=== PATIENT | male | born 1990 | race Caucasian/White ===

== ENCOUNTER 2019-12-06 20:26 | Emergency (ER) | payer SELFPAY ==
[2019-12-06 20:30] VITALS: BP 126/75; PULSE 82; RESP 16; TEMP 37; O2SAT 98
--- NOTE | 2019-12-06 20:42 | ED.GENADUL_ITS ---
Discharge Plan Disposition Patient Disposition: HOME Condition: Stable Discharge Details Chief Complaint: Laceration Clinical Impression: Hand laceration Primary Care Provider: Nisha Shultz ED Provider: Jan Paulino Home Meds and New Rx's Prescriptions: Continued sertraline 100 MG tablet 100 mg PO DAILY RF: 0 Discharge Instructions Instructions: Laceration (ED) Additional Instructions: Sutures were offered but declined. Steri-Strips applied. Keep the area clean and dry, apply dry sterile dressing over the Steri-Strips daily. Steri-Strips will likely come off on their own in the next 7-10 days. Please watch for new or worsening symptoms and return to the ER for any concerns Medical Decision Making 29-year-old gentleman presents for right hand laceration. Tetanus up-to-date. Wound was thoroughly cleaned and irrigated. We discussed closure options. Based upon the location, being on the dominant hand, sutures were recommended and offered but declined. He reports that he would prefer Steri-Strips. Steri-Strips applied without difficulty. Dry sterile dressing applied. Patient has no additional questions or concerns and is comfortable discharge. Medical Records Medical records reviewed: Yes I reviewed the patient's medical records. HPI General Mode of arrival: ambulatory . Date/Time Provider Initiated Documentation: 12/06/19 20:42 . Limitations to Documentation: no limitations . Information obtained by: patient . HPI Narrative: 29-year-old gentleman who is right-hand dominant, no significant past medical history presents for evaluation of right hand laceration. 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 He reports the pain is moderate in nature. No foreign body or bleeding. No other injury. No numbness, tingling, weakness. Tetanus status is up-to-date. Related Data Home Medications Medication Instructions Recorded Confirmed sertraline 100 mg PO DAILY 08/16/16 12/06/19 Allergies Allergy/AdvReac Type Severity Reaction Status Date / Time mushroom Allergy Skin Rash Unverified 12/06/19 20:33 General Stated Complaint: Laceration CESAR: 4 Review of Systems Constitutional Constitutional: Denies weakness Musculoskeletal Musculoskeletal: Denies arthralgias, Denies numbness and Denies tingling Integumentary/Breasts Skin/Breast: Denies rash Neurologic Neurologic: Denies numbness, Denies tingling and Denies weakness PFSH Social History Smoking/Tobacco Use Status: Current every day Tobacco Type: cigarettes Alcohol Intake: current Alcohol Intake frequency: a few times a month Drug use: Daily Substance use type: marijuana Do you feel safe at home: Yes Do you feel safe in your relationship?: Yes Exam Const General: cooperative, healthy appearing, comfortable and no acute distress Orientation: alert and awake HENMT Head: normal to inspection, normocephalic and atraumatic Mouth: moist mucous membranes Eyes Conjunctivae: conjunctivae normal Neck Neck: normal visual inspection, trachea midline and supple Resp Effort & Inspection: normal respiratory effort and able to speak in complete sentences Cardio Rate: regular rate Rhythm: regular rhythm Skin General skin exam: no rashes or lesions noted Neuro General: patient alert, patient awake, moves all extremities and no focal motor deficits Sensory Exam: no sensory deficits noted Extrem Hand/finger images: 1. 1 cm superficial well approximated laceration. Neuro, vascular, tendon intact. No bleeding or foreign body. Psych Appearance: grossly normal Mental Status: mental status grossly normal Course Vital Signs Vital signs: Vital Signs Temperature 37 C 12/06/19 20:30 Pulse 82 12/06/19 20:30 Respiratory Rate 16 12/06/19 20:30 Blood Pressure 126/75 12/06/19 20:30 Pulse Oximetry 98 12/06/19 20:30 Temperature 37 C 12/06/19 20:30 Temperature Source Temporal Artery Scan 12/06/19 20:30 Pulse 82 12/06/19 20:30 Respiratory Rate 16 12/06/19 20:30 Respiratory Effort Non-Labored 12/06/19 20:34 Blood Pressure 126/75 12/06/19 20:30 Blood Pressure Position Sitting 12/06/19 20:30 Pulse Oximetry 98 12/06/19 20:30 Oxygen Delivery Method Room Air 12/06/19 20:30 Oxygen Flow Rate 0 12/06/19 20:30 Pain Level 5 12/06/19 20:30
== END 2019-12-06 20:50 | disposition home or self-care (01) ==
PROVIDERS: Emergency Provider Physician Assistant; PCP Nurse Practitioner Family
DX: S61.411A Laceration without foreign body of right hand, initial encounter (principal); W31.89XA Contact with other specified machinery, initial encounter
CPT/HCPCS: 99282; 99283

== ENCOUNTER 2019-12-14 00:24 | Emergency (ER) | payer SELFPAY ==
[2019-12-14] VITALS: BP 131/86; PULSE 110; RESP 22; TEMP 36.8; O2SAT 100
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
[2019-12-14 00:43] LABS: ALT 15 U/L (16-63); AST 19 U/L (15-37); Albumin 3.3 g/dL (3.4-5.0); Alkaline Phosphatase 55 U/L (46-116); Anion Gap 12.4 mmol/L (3-11); BUN 7 mg/dL (7-18); Bilirubin, Total 0.3 mg/dL (0.2-1.0); CO2 20.6 mmol/L (21.0-32.0); CREATININE 0.69 mg/dL (0.70-1.30); Calcium 6.7 mg/dL (8.5-10.1); Chloride 110 mmol/L (98-107); Creatine Kinase 233 U/L (39-308); ETHANOL BLOOD 75.4 mg/dL (<3); Glucose 80 mg/dL (74-106); Sodium 143 mmol/L (136-145); Total Protein 5.8 g/dL (6.4-8.2)
[2019-12-14 00:51] LABS: Abs Immature Grans 0.06 10^3/uL (0.0-0.06); Absolute Basophil Count 0.05 10^3/uL (0.0-0.2); Absolute Eosinophil Count 0.05 10^3/uL (0.0-0.7); Absolute Neutrophil Count 9.82 10^3/uL (1.2-6.7); Basophils % 0.4; Eosinophils % 0.4; HCT 40.4 % (40.0-50.0); HGB 13.3 g/dL (13.5-17.5); Immature Grans % 0.5; Lymphocytes % 11.6; MCHC 32.9 % (32.0-36.0); MCV 85.1 fL (80-95); MPV 10.2 fL (8.0-11.0); Monocytes % 8.3; Neutrophils % 78.8; Nucleated RBC 0 %; Platelet Count 269 10^3/uL (130-400); RBC 4.75 10^6/uL (4.36-5.78); RDW 13.1 % (11.8-14.1); RDW-SD 40.9 fL; WBC 12.46 10^3/uL (4.4-10.8)
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
[2019-12-14 00:52] LABS: Absolute Lymphocyte Count 1.45 10^3/uL (1.2-3.4); Absolute Monocyte Count 1.03 10^3/uL (0.1-0.8)
[2019-12-14 00:54] LABS: Potassium 2.7 mmol/L (3.5-5.1)
[2019-12-14] MEDS: Omnipaque 350 MG/ML 100 ML BTL IV (01:04)
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
[2019-12-14 01:06] LABS: INR 1.1 (0.9-1.1); PTT Activated 23.1 sec (21.0-31.4); Prothrombin Time 11.3 sec (9.3-11.0)
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
[2019-12-14] MEDS: Potassium Chloride 20 MEQ TABCR 40 MEQ PO (01:41)
[2019-12-14 01:52] VITALS: BP 136/88; PULSE 86; RESP 20; O2SAT 100
== END 2019-12-14 01:55 | disposition home or self-care (01) ==
LOC: ER 02:18
PROVIDERS: Emergency Provider Emergency Medicine; PCP Nurse Practitioner Family
DX: S09.90XA Unspecified injury of head, initial encounter (principal); S70.12XA Contusion of left thigh, initial encounter; S29.8XXA Other specified injuries of thorax, initial encounter; R10.12 Left upper quadrant pain; V48.5XXA Car driver injured in noncollision transport accident in traffic accident, initial encounter; F10.120 Alcohol abuse with intoxication, uncomplicated; Y90.3 Blood alcohol level of 60-79 mg/100 ml; E87.6 Hypokalemia
CPT/HCPCS: 36415; 74177; 80053; 80307; 82550; 99285; 70450; 71260; 72125; 73701; 80320; 81003; 85025; 85610; 85730; 99284; J3490

== ENCOUNTER 2020-02-29 17:33 | Emergency (ER) | payer SELFPAY ==
[2020-02-29 17:39] VITALS: BP 115/72; PULSE 75; TEMP 36.6; O2SAT 98
--- NOTE | 2020-02-29 17:48 | PDOC.CMSAFED ---
- If Service Date Differs Date of service: 02/29/20 Time of Service: 17:49 Care Management Safety Plan Chief complaint: Per report, Jose arrived at ED intoxicated and suicidal. He will be evaluated by mental health once he is no longer intoxicated, and he is medically cleared. He will be monitored by staff one on one for safety until further evaluation can be made. CM will continue to follow. In the interim; please note safety plan below to guide patient care while awaiting further assessment in the ED. SAFETY PLAN: 1. Will remain on suicide precautions and in paper clothes. 2. 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 3. May have paper cups, plates, finger foods as well as a cardboard spoon with which to eat meals. 4. Follow [facility] Management of the Admitted Behavioral Health Patient policy. 5. Comfort bath system only. 6. No personal belongings 7. No visitors. 8. Phone contact limited, at discretion of staff. 9. Due to VOLUNTARY status, if patient wishes to leave [facility], the [facility] outreach and education social worker must be contacted to re-evaluate patient prior to patient exiting the building. If deemed appropriate for inpatient psychiatric care, safety plan will be established with patient, and care team, to adhere to patient goals, identify restrictions based on behavioral status, address nutrition, and determine allowed personal belongings, tools for hygiene and personal care. As well plan will determine level of activity including ambulation, level of supervision, visitors, and determine privileges based on level of acuity, behaviors and level of engagement by patient.
[2020-02-29 18:10] LABS: Bilirubin Negative (Negative); Blood Negative (Negative); Clarity Clear (Clear); Glucose Negative (Negative); Ketones Negative (Negative); Leukocyte Esterase Negative (Negative); Nitrite Negative (Negative); Urobilinogen 0.2 EU/dL (Up TO 0.2); pH 6.5 (5-8)
[2020-02-29 18:19] LABS: Abs Immature Grans 0.03 10^3/uL (0.0-0.06); Absolute Basophil Count 0.07 10^3/uL (0.0-0.2); Absolute Eosinophil Count 0.06 10^3/uL (0.0-0.7); Absolute Lymphocyte Count 1.83 10^3/uL (1.2-3.4); Absolute Monocyte Count 0.94 10^3/uL (0.1-0.8); Absolute Neutrophil Count 7.32 10^3/uL (1.2-6.7); Basophils % 0.7; Eosinophils % 0.6; HCT 40.1 % (40.0-50.0); HGB 13.4 g/dL (13.5-17.5); Immature Grans % 0.3; Lymphocytes % 17.9; MCHC 33.4 % (32.0-36.0); MCV 83.7 fL (80-95); MPV 10.1 fL (8.0-11.0); Monocytes % 9.2; Neutrophils % 71.3; Nucleated RBC 0 %; Platelet Count 257 10^3/uL (130-400); RBC 4.79 10^6/uL (4.36-5.78); RDW 12.4 % (11.8-14.1); RDW-SD 38.2 fL; WBC 10.25 10^3/uL (4.4-10.8)
[2020-02-29 18:23] LABS: *AMPHETAMINES SCREEN URINE Negative (Negative); *BARBITURATES SCREEN URINE Negative (Negative); *BENZODIAZEPINES SCREEN URINE Negative (Negative); Cannabinoids THC POSITIVE (Negative); Cocaine Screen,Urine Negative (Negative); METHADONE URINE SCREEN Negative (Negative); OPIATES URINE SCREEN Negative (Negative)
[2020-02-29 18:28] LABS: Tricyclic Antidepressants Negative (Negative)
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
[2020-02-29 18:52] LABS: ALT 20 U/L (16-63); AST 29 U/L (15-37); Albumin 4.5 g/dL (3.4-5.0); Alkaline Phosphatase 76 U/L (46-116); Anion Gap 11.1 mmol/L (3-11); BUN 9 mg/dL (7-18); Bilirubin, Total 0.3 mg/dL (0.2-1.0); CO2 23.9 mmol/L (21.0-32.0); CREATININE 0.88 mg/dL (0.70-1.30); Chloride 105 mmol/L (98-107); ETHANOL BLOOD 81.9 mg/dL (<3); Glucose 77 mg/dL (74-106); Potassium 3.7 mmol/L (3.5-5.1); Sodium 140 mmol/L (136-145); TSH 1.91 uIU/mL (0.36-3.74); Total Protein 7.8 g/dL (6.4-8.2)
[2020-02-29 18:58] LABS: Acetaminophen < 2 ug/mL (10-30); Salicylate < 2.8 mg/dL (2.8-20.0)
== END 2020-02-29 20:20 | disposition home or self-care (01) ==
PROVIDERS: Emergency Provider Nurse Practitioner Acute Care; PCP Nurse Practitioner Family
DX: F10.129 Alcohol abuse with intoxication, unspecified (principal); Y90.4 Blood alcohol level of 80-99 mg/100 ml; R45.850 Homicidal ideations; R45.851 Suicidal ideations; Z72.89 Other problems related to lifestyle
CPT/HCPCS: 80053; 80307; 99285; 80320; 80329; 81003; 84443; 85025; 99284

== ENCOUNTER 2020-04-30 21:42 | Emergency (ER) | payer SELFPAY ==
[2020-04-30 21:53] VITALS: BP 116/72; PULSE 95; RESP 18; TEMP 37.2; O2SAT 99
--- NOTE | 2020-04-30 22:06 | ED.GENADUL_ITS ---
Discharge Plan Disposition Patient Disposition: HOME Condition: Good Discharge Details Clinical Impression: Forearm pain Primary Care Provider: Nisha Shultz ED Provider: Yohan Le [place] Meds and New Rx's Prescriptions: New ibuprofen 600 mg tablet 600 mg PO TID Qty: 15 RF: 0 Continued sertraline 100 mg tablet 100 mg PO HS RF: 0 Discharge Instructions Additional Instructions: X-rays are negative. It does not appear to be infection. Suspect more likely tendinitis type problem. Wear splint at all times except to shower. No use of right upper extremity until follow up with PCP. Call for recheck end of next week. Ibuprofen for next 5 days. Ice on/off over the weekend. Return if worsening pain/redness/swelling, fever, numbness, weakness of hand. Referrals: Nisha Shultz [Primary Care Provider] - Medical Decision Making This is not abscess or infection. Suspect more tendonitis type picture involving proximal tendons/muscle of forearm. No evidence of compartment syndrome. X-ray obtained and normal. Placed in wrist splint and started on NSAIDs. Rest and no use of RUE. Follow up with PCP next week. Return to ED if problems. HPI General Mode of arrival: ambulatory . Date/Time Provider Initiated Documentation: 04/30/20 22:06 . Limitations to Documentation: no limitations . Information obtained by: patient and RN notes reviewed . HPI Narrative: Patient presents to ED with right forearm pain. Patient denies injury. He is right hand dominant. 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 He denies illness, fever, chills. He states started to notice pain two days ago. Today worse and tonight seems swollen and a little red. Denies IVDA. Related Data Home Medications Medication Instructions Recorded Confirmed ibuprofen 600 mg PO TID #15 tab 04/30/20 sertraline 100 mg PO HS 04/30/20 04/30/20 Previous Rx's Medication Instructions Recorded ibuprofen 600 mg PO TID #15 tab 04/30/20 Allergies Allergy/AdvReac Type Severity Reaction Status Date / Time mushroom Allergy Mild Skin Rash Unverified 04/30/20 21:57 General Stated Complaint: Cellulitis CESAR: 4 Review of Systems Constitutional Constitutional: Denies chills, Denies fever(s) and Denies night sweats Musculoskeletal Musculoskeletal: Denies muscle weakness and Denies numbness Integumentary/Breasts Skin/Breast: Reports erythema, Denies sores and Denies wounds Neurologic Neurologic: Denies numbness [facility] Medical History Depression Social History Smoking/Tobacco Use Status: Current every day Tobacco Type: cigarettes Smoking risk assessment performed?: Yes Alcohol Intake: current Alcohol Intake frequency: a few times a month Drug use: Daily Substance use type: marijuana Do you feel safe at home: Yes Do you feel safe in your relationship?: Yes Exam Const General: cooperative, comfortable and no acute distress Orientation: alert and oriented x3 HENMT Head: normocephalic and atraumatic Neck Neck: trachea midline and supple Resp Effort & Inspection: normal respiratory effort Skin Other: Minimal erythema without warmth radial distal right forearm. Extrem Other: Swelling and tenderness without fluctuance right distal third of radius area. Decreased ROM in wrist due to pain in forearm. Wrist itself not painful and not swollen. Hand normal but flexion/extension of finger causes pain in forearm. Pronation/supination also cause pain but not as severe. Elbow normal. NVI with strength, sensation, pulse and cap refil. Course Vital Signs Vital signs: Vital Signs Temperature 99.0 F 04/30/20 21:53 Pulse 95 H 04/30/20 21:53 Respiratory Rate 18 04/30/20 21:53 Blood Pressure 116/72 04/30/20 21:53 Pulse Oximetry 99 04/30/20 21:53 Temperature 99.0 F 04/30/20 21:53 Temperature Source Skin 04/30/20 21:53 Pulse 95 H 04/30/20 21:53 Respiratory Rate 18 04/30/20 21:53 Respiratory Effort Non-Labored 04/30/20 21:57 Blood Pressure 116/72 04/30/20 21:53 Pulse Oximetry 99 04/30/20 21:53 Pain Level 8 04/30/20 21:53
--- NOTE | 2020-04-30 22:21 | DI.RAD_ITS ---
EXAM: XR FOREARM RT CLINICAL HISTORY: pain/swelling distal third; no trauma. TECHNIQUE: 2D digital imaging was performed. COMPARISON: CR LEFT FOREARM from 08/16/2016 FINDINGS: BONES: No acute fracture is present. No bony destructive lesion is seen. Visualized portion of elbow and wrist joints are unremarkable. SOFT TISSUE: Normal. IMPRESSION: Unremarkable radiographs of the right forearm. DATA REPOSITORY: RADIATION DOSE DELIVERED:
--- NOTE | 2020-04-30 22:26 | DI.VRAD_ITS ---
PROCEDURE INFORMATION: Exam: XR Right Forearm Exam date and time: 04/30/2020 10:22 PM Age: 29 years old Clinical indication: Lower or forearm; Right; Patient HX: Pain and swelling distal 1/3rd , no trauma TECHNIQUE: Imaging protocol: XR Right forearm. Views: 2 views. COMPARISON: No relevant prior studies available. FINDINGS: Bones/joints: Normal. No osseous erosion. No fracture or dislocation. Normal osseous mineralization. Soft tissues: Normal. No soft tissue gas or radiopaque foreign body. IMPRESSION: No acute abnormality. Dictated and Authenticated by: Francisco Oneill MD. Ordering:EL Almanzar MD
[2020-04-30] MEDS: Ibuprofen 600 MG TAB PO (22:42)
== END 2020-04-30 23:00 | disposition home or self-care (01) ==
PROVIDERS: Emergency Provider Emergency Medicine; PCP Nurse Practitioner Family
DX: M79.631 Pain in right forearm (principal)
CPT/HCPCS: 29125; 99283; 73090

== ENCOUNTER 2021-04-28 21:05 | Emergency (ER) | payer MEDICAID, SELFPAY ==
--- NOTE | 2021-04-28 21:06 | ED.GENADUL_ITS ---
Discharge Plan Disposition Patient Disposition: HOME Condition: Good Discharge Details Clinical Impression: Foot pain, left Primary Care Provider: Nisha Shultz ED Provider: Yohan [place] Meds and New Rx's Prescriptions: Continued sertraline 100 mg tablet 100 mg PO HS RF: 0 ibuprofen 600 mg tablet 600 mg PO TID Qty: 15 RF: 0 Discharge Instructions Additional Instructions: X-rays are normal. Suspect pain and discomfort related to the tendons and should improve over the weekend with rest, ice, ibuprofen. Follow-up with [facility] care in 1 to 2 weeks if it is not improving. Return to ED if fever, increasing pain, swelling, redness, or other concerns. Referrals: Nisha Shultz [Primary Care Provider] - Medical Decision Making Patient has not taken anything for pain. Given ibuprofen here. X-ray of the left foot obtained and per my review and preliminary radiology read negative for any acute changes. Suspect related to the tendons and should improve with ice, rest, nonsteroidals. Follow-up with primary care 1 to 2 weeks if not improving. Return to ED for increasing pain, swelling, redness, other concerns. HPI General Mode of arrival: ambulatory . Date/Time Provider Initiated Documentation: 04/28/21 21:06 . Limitations to Documentation: no limitations . Information obtained by: patient and RN notes reviewed . HPI Narrative: Patient presents to the ED with foot pain which started this evening. There was no injury or change in footwear. Pain is across the top of his foot and shoots up his maurice at times. Some pain in his arch. No swelling or redness. Toes felt numb/tingly earlier while walking. Otherwise feels well with no other complaints. Related Data Home Medications Medication Instructions Recorded Confirmed sertraline 100 mg PO HS 04/30/20 04/28/21 ibuprofen 600 mg PO TID #15 tab 04/28/21 Previous Rx's Medication Instructions Recorded ibuprofen 600 mg PO TID #15 tab 04/28/21 Allergies Allergy/AdvReac Type Severity Reaction Status Date / Time mushroom Allergy Mild Skin Rash Unverified 04/28/21 21:21 General CESAR: 4 Review of Systems Narrative: As documented in HPI otherwise negative as below. Const: no fever, chills, weakness Resp: no cough, SOB, pleuritic pain CV: no CP, diaphoresis, edema, syncope GI: no abdominal pain, nausea, vomiting, diarrhea Neuro: no headache, focal weakness, confusion PFSH All Active Problems (Updated 04/28/21 @ 22:27 by Yohan Le MD) Foot pain, left (Acute) Medical History Depression Surgical History S/P appendectomy Social History Smoking/Tobacco Use Status: Current every day Tobacco Type: cigarettes Smoking risk assessment performed?: Yes Alcohol Intake: current Alcohol Intake frequency: a few times a month Drug use: Daily Substance use type: marijuana Do you feel safe at home: Yes Do you feel safe in your relationship?: Yes Exam Narrative Exam Narrative: Const: WDWN male in NAD. HEENT: NC/AT. Normal facial exam. Eyes: Normal conjunctiva and sclera. Neck: Supple. Trachea midline. Lungs: Normal respiratory effort. Cor: RRR . Good DP/PT pulses. Neuro: A+O x 3. Normal speech, mentation, gait. Cranial nerves II - XII grossly intact. No gross motor or sensory deficit. Ext: No C/C/E. Left foot appears normal. Tender across the top of the mid foot. Mild tenderness in the arch. Pain with active ROM of toes but not passive. Skin: Warm and dry without rash/erythema.
--- NOTE | 2021-04-28 21:15 | DI.RAD_ITS ---
Exam(s) XR FOOT LT COMPLETE EXAM: XR FOOT LT COMPLETE CLINICAL HISTORY: pain and swelling to mid foot. TECHNIQUE: 2D digital imaging was performed. COMPARISON: No exams were available for comparison FINDINGS: There is no evidence of acute fracture or diastasis of the Lala aditya joint. Bone density is normal. No osseous lesions evident. On the lateral view cannot exclude the possibility of tarsal coalition (talocalcaneal). IMPRESSION: No acute findings evident. Possible talar coalition. DATA REPOSITORY: RADIATION DOSE DELIVERED:
[2021-04-28 21:19] VITALS: BP 127/57; PULSE 72; RESP 18; TEMP 36.8; O2SAT 95
--- NOTE | 2021-04-28 22:24 | DI.VRAD_ITS ---
PROCEDURE INFORMATION: Exam: XR Left Foot Exam date and time: 04/28/2021 9:28 PM Age: 30 years old Clinical indication: Other: Pain midfoot TECHNIQUE: Imaging protocol: XR Left foot. Views: 3 or more views. COMPARISON: CT LOWER EXTREMITY LT W 12/14/2019 12:19 AM FINDINGS: Bones/joints: Normal. Soft tissues: Normal. IMPRESSION: No acute findings. Dictated and Authenticated by: Romie Ferreira MD. Ordering:EL Almanzar MD
== END 2021-04-28 22:33 | disposition home or self-care (01) ==
PROVIDERS: Emergency Provider Emergency Medicine; PCP Nurse Practitioner Family
DX: M79.671 Pain in right foot (principal); R22.42 Localized swelling, mass and lump, left lower limb
CPT/HCPCS: 99283; 73630

== ENCOUNTER 2023-10-28 20:07 | Emergency (ER) | payer MEDICAID, SELFPAY ==
[2023-10-28 20:10] VITALS: BP 135/83; PULSE 83; TEMP 36.9; O2SAT 98
[2023-10-28 20:40] VITALS: BP 135/83; PULSE 83; TEMP 36.9; O2SAT 98
--- NOTE | 2023-10-28 21:49 | ED.GENADUL_ITS ---
Discharge Plan Disposition Patient Disposition: Home Discharge Details Clinical Impression: Acute foreign body of left ear Primary Care Provider: Nisah Shultz ED Provider: Erik Contreras Home Meds and New Rx's Prescriptions: No Action trazadone PO Rx Instructions: 50mg HS sertraline 100 mg tablet 150 mg PO HS Patient Comments: tejas ibuprofen 600 mg tablet 600 mg PO TID Qty: 15 0RF Discharge Instructions Instructions: Foreign Body in Ear Additional Instructions: Please use the provided eardrops and apply 10 drops into the affected ear once daily for the next 4 days. Return to the emergency department for any new or significant worsening of symptoms otherwise follow-up with your primary care provider as needed Referrals: Nisha Shultz [Primary Care Provider] - [facility] General Mode of arrival: ambulatory . Date/Time Provider Initiated Documentation: 10/28/23 20:15 . Limitations to Documentation: no limitations . Information obtained by: patient and RN notes reviewed . History of Present Illness 33 year old M presents to the emergency department with the chief complaint of Foreign object, bug, and left ear, described as moderate, Quality is described as sharp, Patient started experiencing this minute(s) (30) and it has been constant. No relieving factors improve symptom(s), No exacerbating factors reported . Patient notes no other symptoms.. Patient did receive the following treatments prior to arrival, none Related Data Home Medications Medication Instructions Recorded Confirmed ibuprofen 600 mg tablet 600 mg PO TID #15 tabs 04/28/21 12/01/21 sertraline 100 mg tablet 150 mg PO HS 12/01/21 12/01/21 trazadone PO 12/01/21 Previous Rx's Medication Instructions Recorded ibuprofen 600 mg tablet 600 mg PO TID #15 tabs 04/28/21 Allergies Allergy/AdvReac Type Severity Reaction Status Date / Time mushroom Allergy Mild Skin Rash Unverified 04/28/21 21:21 General Stated Complaint: EarProblem CESAR: 4 Review of Systems Constitutional Constitutional: Denies headache(s) ENT Ears, Nose, Mouth, and Throat: Reports as per HPI, Reports otalgia and Denies headache(s) Cardiovascular Cardiovascular: Denies dyspnea Respiratory Respiratory: Denies dyspnea Neurologic Neurologic: Denies headache(s) Exam Const General: cooperative, no acute distress and not ill appearing Orientation: alert, awake and oriented x3 HENMT Head: normal to inspection and normocephalic Ears: hearing grossly normal bilaterally, external ears normal and EAC abnormal cerumen impaction on the left and foreign body on the left Mouth: moist mucous membranes Resp Effort & Inspection: normal respiratory effort, able to speak in complete sentences and no respiratory distress Skin General skin exam: no rashes or lesions noted Neuro General: patient alert, patient awake, patient oriented x3, moves all extremities and no focal motor deficits Sensory Exam: no sensory deficits noted Course Vital Signs Vital signs: Vital Signs Temperature 36.9 C 10/28/23 20:10 Pulse 83 10/28/23 20:10 Blood Pressure 135/83 10/28/23 20:10 Pulse Oximetry 98 10/28/23 20:10 Temperature 36.9 C 10/28/23 20:40 Temperature Source Tympanic 10/28/23 20:10 Pulse 83 10/28/23 20:40 Respiratory Effort Normal 10/28/23 20:55 Blood Pressure 135/83 10/28/23 20:40 Blood Pressure Position Sitting 10/28/23 20:40 Pulse Oximetry 98 10/28/23 20:40 Oxygen Delivery Method Room Air 10/28/23 20:40 Pain Level 6 10/28/23 20:40 Procedures FB Removal Ear Location: ear canal (L) Foreign Body Suspected: insect TM intact pre-procedure: unable to visualize If Insect Suspected: ear canal instilled with Lidocaine Foreign Body Removed: yes Foreign Body Removal Technique: irrigation Tympanic Membrane Intact: Yes Patient Tolerated Procedure: well Complications: none Medical Decision Making Patient presenting to the emergency department for chief complaint of reported bug in left ear. Patient unsure how this occurred and denies all other symptoms. Nurse at triage stated that she saw the bug crawling around in the ear and enter further into the canal when she went to visualize bug. When I attempted to visualize ear was full of cerumen and initially unable to visualize. With inability to view TM did discuss with patient risk versus benefit of procedure which she gave verbal agreement to proceed. Lidocaine was immediately instilled into the ear and allowed to sit in there for 10 minutes. Ear was then suctioned out and enough cerumen was able to be removed to visualize a portion of the insect. Unfortunately alligator forceps were not available so did try further suctioning and other instruments along with irrigation. Finally was able to irrigate the bug into a place to grab it with some tweezers. Patient tolerated procedure well. Visualization of the ear canal did show some excoriation of the canal but TM was intact. Patient placed upon ofloxacin to cover for potential infection due to excoriation by bug otherwise patient can monitor symptoms at home and return for new or worsening of condition. After discussion of diagnosis and plan of care patient has no further needs, questions, or concerns and states clear understanding to return to the emergency department for any worsening symptoms. This documentation was generated using Spreadsave dictation system, please disregard any oddities of phrase or misspellings. Quality:SDOH Health Related Social Needs: No Data to Display PFSH All Active Problems (Updated 10/28/23 @ 22:37 by Erik Contreras NP) Acute foreign body of left ear (Acute) Medical History Depression Surgical History S/P appendectomy Social History Smoking/Tobacco Use Status: Current every day Tobacco Type: cigarettes Smoking risk assessment performed?: Yes Alcohol Intake: current Alcohol Intake frequency: a few times a month Drug use: Daily Substance use type: marijuana Do you feel safe at home: Yes Do you feel safe in your relationship?: Yes
[2023-10-28] MEDS: Ofloxacin 0.3% OTIC 5 ML BTL AD (22:05)
[2023-10-28 22:06] VITALS: BP 135/83; PULSE 83; RESP 16; TEMP 36.9; O2SAT 98
== END 2023-10-28 22:10 | disposition home or self-care (01) ==
PROVIDERS: Emergency Provider Nurse Practitioner Family; PCP Nurse Practitioner Family
DX: T16.2XXA Foreign body in left ear, initial encounter (principal); F17.210 Nicotine dependence, cigarettes, uncomplicated; W44.F4XA Insect entering into or through a natural orifice, initial encounter
CPT/HCPCS: 99283

== ENCOUNTER 2024-06-10 08:45 | Emergency (ER) | payer MEDICAID, SELFPAY ==
[2024-06-10 09:18] VITALS: BP 120/76; PULSE 71; RESP 20; TEMP 37.1; O2SAT 98
--- NOTE | 2024-06-10 09:23 | ED.GENADUL_ITS ---
Discharge Plan Disposition Patient Disposition: Home Condition: Stable Discharge Details Clinical Impression: Upper respiratory virus Primary Care Provider: Nisha Shultz ED Provider: Malia Lee Home Meds and New Rx's Prescriptions: No Action trazadone 50 mg PO HS Rx Instructions: 50mg HS lamotrigine 25 mg tablet 25 mg PO DAILY Patient Comments: TAKE ONE TABLET BY MOUTH EVERY DAY sertraline 100 mg tablet 150 mg PO HS Patient Comments: tejas ibuprofen 600 mg tablet 600 mg PO TID Qty: 15 0RF Discharge Instructions Instructions: Viral Upper Respiratory Infection, Adult (DC) Additional Instructions: You were seen in the emergency department today for evaluation of bodyaches, runny nose, which is most consistent with a viral upper respiratory infection. In our department you do full physical examination performed and had a negative viral swab. Please continue to maintain good hydration and nutrition and use Tylenol and ibuprofen for management of fever or pain. Please follow-up with your primary care provider in the next few days to discuss this visit and any symptoms that change, worsen, or persist. Thank you for allowing us to be part of your care. Stand Alone Forms: Work Release HPI General Mode of arrival: ambulatory . Date/Time Provider Initiated Documentation: 06/10/24 08:52 . Limitations to Documentation: no limitations . Information obtained by: patient and old records reviewed . HPI Narrative: HPI: This is a 33-year-old male patient without significant past medical history is presenting for evaluation of 2 days of general malaise, body aches, stuffy nose and cough. The patient reports that his was sick with influenza and he is worried that he is catching it. He has felt a subjective fever and hot sweats, has not measured a temperature at home. He has not tried any medications at home for management of the symptoms. Has not had vomiting and has been able to eat and drink normally, has stayed home from work for the last few days. Exam: Gen: Awake and alert, in no apparent distress HEENT: Non-icteric s, moist mucous membranes clera Neck: Supple Lungs: No apparent respiratory distress, normal respiratory effort. Lung sounds clear and equal bilaterally without wheezes, rhonchi, rales CV: Appears well perfused, heart with regular rate and rhythm, no murmurs auscu ltated Abdomen: Non-distended MSK: Moves 4 extremities without apparent limitation in ROM Skin: Visualized skin without rashes, cyanosis. Neuro: Normal Gait, no obvious focal deficits or facial asymmetry. Speaks in full, clear sentences. Psych: Appropriate for situation. MDM: This is a 33-year-old male patient presenting for evaluation of 2 days of general malaise and bodyaches with stuffy nose and cough. Differential includes but is not limited to viral URI, I certainly considered bronchitis and pneumonia though the patient is reassuringly afebrile at this time with no focal lung findings. He has no fever, tachycardia, or evidence of systemic disease to suggest bacteremia, sepsis. The patient is maintaining his hydration and I have a low concern for metabolic and electrolyte derangements, kidney injury. I will provide the patient with Tylenol and ibuprofen for symptomatic management and we will proceed with a Fluvid swab. At this time given the brief duration of symptoms and the reassuring examination I do not see an indication to proceed with imaging such as chest x-ray. ED Course: Fluvid negative, I am most suspicious for another upper respiratory virus. The patient was able to rest comfortably and states that the medications given improved his symptoms. At this time, the patient has had a full medical evaluation and is safe for discharge to home. They are hemodynamically stable, ambulatory, and tolerating PO. They are understanding of the follow-up plan and return precautions. They left our facility without incident. Malia Lee MD Related Data Home Medications ?Medication ?Instructions ?Recorded ?Confirmed ibuprofen 600 mg tablet 600 mg PO TID #15 tabs 04/28/21 06/10/24 sertraline 100 mg tablet 150 mg PO HS 12/01/21 06/10/24 trazadone 50 mg PO HS 12/01/21 06/10/24 lamotrigine 25 mg tablet 25 mg PO DAILY 06/10/24 06/10/24 Previous Rx's ?Medication ?Instructions ?Recorded ibuprofen 600 mg tablet 600 mg PO TID #15 tabs 04/28/21 Allergies Allergy/AdvReac Type Severity Reaction Status Date / Time mushroom Allergy Mild Skin Rash Unverified 06/10/24 09:19 General Stated Complaint: RespSymp CESAR: 4 Course Vital Signs Vital signs: Vital Signs Temperature 37.1 C 06/10/24 09:18 Pulse 71 06/10/24 09:18 Respiratory Rate 20 06/10/24 09:18 Blood Pressure 120/76 06/10/24 09:18 Pulse Oximetry 98 06/10/24 09:18 Temperature 37.1 C 06/10/24 09:18 Temperature Source Temporal Artery Scan 06/10/24 09:18 Pulse 71 06/10/24 09:18 Respiratory Rate 20 06/10/24 09:18 Blood Pressure 120/76 06/10/24 09:18 Blood Pressure Position Sitting 06/10/24 09:18 Pulse Oximetry 98 06/10/24 09:18 Oxygen Delivery Method Room Air 06/10/24 09:18 Oxygen Flow Rate 0 06/10/24 09:18 Pain Level 3 06/10/24 09:18 Medical Decision Making Quality:SDOH Health Related Social Needs: No Data to Display PFSH All Active Problems (Updated 06/10/24 @ 10:47 by Malia Lee MD) Upper respiratory virus (Acute) Medical History Depression Surgical History S/P appendectomy Social History Smoking/Tobacco Use Status: Current every day Tobacco Type: cigarettes Smoking risk assessment performed?: Yes Alcohol Intake: current Alcohol Intake frequency: a few times a month Drug use: Daily Substance use type: marijuana Do you feel safe at home: Yes Do you feel safe in your relationship?: Yes
[2024-06-10] MEDS: Acetaminophen 500 MG TAB 1000 MG PO (09:30)
[2024-06-10] MEDS: Ibuprofen 600 MG TAB PO (09:30)
[2024-06-10 10:28] LABS: COVID-19 PCR Negative (Negative); Influenza A PCR Negative (Negative); Influenza B PCR Negative (Negative); RSV PCR Negative (Negative); Source Nasopharynx
[2024-06-10 10:51] VITALS: BP 118/73; PULSE 80; RESP 16; TEMP 37; O2SAT 100
== END 2024-06-10 10:55 | disposition home or self-care (01) ==
PROVIDERS: Emergency Provider Emergency Medicine; PCP Nurse Practitioner Family
DX: J06.9 Acute upper respiratory infection, unspecified (principal); F17.210 Nicotine dependence, cigarettes, uncomplicated
CPT/HCPCS: 87637; 99283

== ENCOUNTER 2025-01-22 19:57 | Emergency (ER) | payer MEDICAID, SELFPAY ==
[2025-01-22 20:01] VITALS: BP 115/69; PULSE 79; RESP 18; TEMP 37.1; O2SAT 97
[2025-01-22] MEDS: Ibuprofen 400 MG TAB PO (20:25)
[2025-01-22] MEDS: Acetaminophen 500 MG TAB 1000 MG PO (20:25)
[2025-01-22] MEDS: Ondansetron O.D.T. 4 MG TABEF, 3 TABS/BTL PO (20:27)
--- NOTE | 2025-01-22 20:59 | W.ED.GENAD ---
Discharge Plan Disposition Patient Disposition: Home Condition: Stable Discharge Details Clinical Impression: Viral syndrome Primary Care Provider: Nisha Shultz ED Provider: Gopal Jorge Home Meds and New Rx's Prescriptions: No Action trazadone 50 mg PO HS Rx Instructions: 50mg HS lamotrigine 25 mg tablet 25 mg PO DAILY Patient Comments: TAKE ONE TABLET BY MOUTH EVERY DAY sertraline 100 mg tablet 150 mg PO HS Patient Comments: tejas ibuprofen 600 mg tablet 600 mg PO TID Qty: 15 0RF Discharge Instructions Instructions: Cough, runny nose, and the common cold Additional Instructions: You were seen in the emergency department for your viral syndrome, you are negative for COVID flu and RSV. Please take Tylenol and Motrin and [id number] cough medicines as needed, we have provided you with 3 tablets of ondansetron for any nausea or vomiting, stay well-hydrated, return for any respiratory distress or other emergent concern Referrals: Nisha Shultz [Primary Care Provider, Medicine] Discharge Data Discharge Date/Time-TO BE ENTERED AT DEPARTURE: 01/22/25 22:07 HPI General Date/Time Provider Initiated Documentation: 01/22/25 20:07. HPI Narrative: 34 year-old male presents to ED today by POV/ambulating with a chief complaint of nausea/vomiting once, cough, runny nose, sore throat with onset this morning- requesting covid test for work. Quality described as generalized malaise, no radiation to shortness of breath, chest pain, intractable vomiting, profound weakness, syncope. Severity is described as mild to moderate. Palliating factors include nothing specific attempted. Provoking factors include nothing specific. Patient not anticoagulated. Related Data Home Medications ?Medication ?Instructions ?Recorded ?Confirmed ibuprofen 600 mg tablet 600 mg PO TID #15 tabs 04/28/21 01/22/25 sertraline 100 mg tablet 150 mg PO HS 12/01/21 01/22/25 trazadone 50 mg PO HS 12/01/21 01/22/25 lamotrigine 25 mg tablet 25 mg PO DAILY 06/10/24 01/22/25 Previous Rx's ?Medication ?Instructions ?Recorded ibuprofen 600 mg tablet 600 mg PO TID #15 tabs 04/28/21 Allergies Allergy/AdvReac Type Severity Reaction Status Date / Time mushroom Allergy Mild Skin Rash Unverified 01/22/25 20:04 General Stated Complaint: GenMedical CESAR: 4 Review of Systems All systems reviewed & are unremarkable except as noted in HPI and below Exam Narrative Exam Narrative: GENERAL APPEARANCE: Well-nourished, non-toxic, awake and alert, atraumatic, no acute distress. SKIN: Warm, pink, dry, intact, without rashes/lesions/ulcerations. HEAD: Normocephalic, atraumatic, normal hair distribution for gender/age. EYES: Normal conjunctiva, no exudates on lids/lashes. ENT: Nares patent, no circumoral cyanosis, no facial swelling NECK: Supple, trachea midline, painless cervical ROM. LUNGS/CHEST: Lungs CTA bilaterally, non-labored respirations, normal A/P diameter, symmetrical expansion, no chest wall deformity HEART (CV/PV): Regular rate and rhythm without murmur, no peripheral edema, no JVD. ABDOMEN: Soft, non-distended, no guarding. MSK: Normal ROM, no swelling/deformity to bilateral UEs or LEs, moving all extremities without weakness, no cyanosis, spine midline without tenderness, normal curvature. NEURO: Mental Status AAOx4 - alert to person, place, time, events No facial droop, no forehead involvement. Motor: No focal weakness - strength 5/5 in bilateral UEs and LEs, proximal and distal, symmetric. Sensory: sensation intact to light touch globally. Gait normal: patient ambulated without ataxia into ED room. PSYCH: euthymic, cooperative, pleasant, appropriate speech Course Vital Signs Vital signs: Vital Signs Temperature 37.1 C 01/22/25 20:01 Pulse 79 01/22/25 20:01 Respiratory Rate 18 01/22/25 20:01 Blood Pressure 115/69 01/22/25 20:01 Pulse Oximetry 97 01/22/25 20:01 Temperature 37.1 C 01/22/25 20:01 Temperature Source Oral 01/22/25 20:01 Pulse 79 01/22/25 20:01 Respiratory Rate 18 01/22/25 20:01 Blood Pressure 115/69 01/22/25 20:01 Pulse Oximetry 97 01/22/25 20:01 Oxygen Delivery Method Room Air 01/22/25 20:01 Oxygen Flow Rate 0 01/22/25 20:01 Pain Level 0 01/22/25 20:01 Medical Decision Making This dictation utilizes [id number] dictation software and may contain unedited grammatical errors. 34 year-old male presents to ED today by POV/ambulating with a chief complaint of nausea/vomiting once, cough, runny nose, sore throat with onset this morning- requesting covid test for work. Quality described as generalized malaise, no radiation to shortness of breath, chest pain, intractable vomiting, profound weakness, syncope. Severity is described as mild to moderate. Palliating factors include nothing specific attempted. Provoking factors include nothing specific. Patients' medical history: Negative, otherwise healthy. Family and social history: Noncontributory. Pertinent exam findings / vital signs include benign posterior oropharynx, lungs CTA, benign cardiac exam, nontoxic and afebrile. Differential / pathologies of concern include viral syndrome. Diagnostic studies of: - COVID/flu/RSV PCR-negative. Interventions of: -1g PO APAP, 400mg PO ibuprofen, 3 tab zofran to-go. ED Course/Assessment/Plan: Healthy 34-year-old male presents for COVID test, has been mild viral syndrome since this morning, PCR test is negative, given Tylenol and ibuprofen and Zofran to go recommend pushing fluids and staying hydrated return for any emergent concerns. Findings not consistent with respiratory failure, toxic presentation nausea or vomiting. Disposition of viral syndrome. Patient verbalized understanding of the plan and return to ED criteria and engaged in shared decision making. Medical Records Medical records reviewed: Yes I reviewed the patient's medical records. Lab Data Lab results reviewed: Yes I reviewed the patient's lab results. Labs: Laboratory Tests Range/Units 01/22/25 20:25 COVID-19 Source Nasopharynx SARS-CoV-2 (PCR) (Negative) Negative Influenza Type A (PCR) (Negative) Negative Influenza Type B (PCR) (Negative) Negative RSV (PCR) (Negative) Negative PFSH All Active Problems (Updated 01/22/25 @ 21:59 by KASH Silva) Viral syndrome (Acute) Medical History Depression Surgical History S/P appendectomy Social History Smoking/Tobacco Use Status: Current every day Tobacco Type: cigarettes Smoking risk assessment performed?: Yes Alcohol Intake: current Alcohol Intake frequency: a few times a month Drug use: Daily Substance use type: marijuana Do you feel safe at home: Yes Do you feel safe in your relationship?: Yes
[2025-01-22 21:07] LABS: COVID-19 PCR Negative (Negative); RSV PCR Negative (Negative)
[2025-01-22 22:02] VITALS: BP 115/69; PULSE 79; RESP 18; RESP 20; TEMP 37.1; O2SAT 97
== END 2025-01-22 22:07 | disposition home or self-care (01) ==
PROVIDERS: Emergency Provider Physician Assistant; PCP Nurse Practitioner Family
DX: R11.2 Nausea with vomiting, unspecified (principal); R05.1 Acute cough; R07.0 Pain in throat; B34.9 Viral infection, unspecified
CPT/HCPCS: 99283; 99282; 87637